=== PATIENT | male | born 1940 | race Asian ===

== ENCOUNTER 2022-05-14 06:13 | Day surgery (SDC) | payer MEDICARE, BC ==
[2022-05-13 16:55] LABS: CLARITY,URINE CLEAR (Clear); COLOR,URINE STRAW (Yellow); GLUCOSE, URINE NEGATIVE (Neg); KETONES,URINE NEGATIVE (Neg); LEUKOCYTE ESTERASE ,URINE NEGATIVE (Neg); OCCULT BLOOD,URINE NEGATIVE (Neg); PROTEIN,URINE NEGATIVE (Neg); UROBILINOGEN,URINE 0.2 E.U/dL (0.2-1.0)
[2022-05-13 16:56] LABS: BASOPHILS % (AUTO) 0.8 % (0-1); EOSINOPHILS % (AUTO) 1.3 % (0-6); LYMPHOCYTES # (AUTO) 0.8 X10'3 (1.1-4.8); LYMPHOCYTES % (AUTO) 20.8 % (21-51); MEAN CORPUSCULAR HEMOGLOBIN 32.5 PG (27.0-31.0); MEAN CORPUSCULAR HGB CONC 33.2 g/dL (33.0-36.5); MEAN CORPUSCULAR VOLUME 97.9 FL (78-98); MEAN PLATELET VOLUME 9.2 FL (7.4-10.4); MONOCYTES # (AUTO) 0.4 X10'3 (0-0.9); MONOCYTES % (AUTO) 9.1 % (2-12); NEUTROPHILS # (AUTO) 2.6 X10'3 (1.8-7.7); PRE OP HEMATOCRIT 43.4 % (42.0-52.0); PRE OP HEMOGLOBIN 14.4 g/dL (14.0-17.9); PRE OP PLATELET COUNT 124 X10'3 (140-440); RED BLOOD COUNT 4.43 X10'6 (4.70-6.10); RED CELL DISTRIBUTION WIDTH 12.9 % (11.5-14.5)
[2022-05-13 17:01] LABS: NITRITES, URINE NEGATIVE (Neg); UA COLLECTION TYPE NON-SPECIFIED
[2022-05-13 17:13] LABS: ALBUMIN 3.9 G/DL (3.4-5.0); BLOOD UREA NITROGEN 21 MG/DL (7-18); BUN/CREATININE RATIO 17.4 (5.4-32.0); CALCIUM 8.7 MG/DL (8.5-10.1); CHLORIDE 105 MMOL/L (99-107); CREATININE 1.21 MG/DL (0.60-1.10); PRE OP ANION GAP 7 (8-16); PRE OP BILIRUB, TOTAL 0.9 MG/DL (0.0-1.0); PRE OP GLUCOSE 124 MG/DL (70-104); PRE OP SODIUM 141 MMOL/L (135-145); TOTAL CARBON DIOXIDE 29.2 MMOL/L (24-32); eGFR 58 ML/MIN
[2022-05-13 17:14] LABS: ALBUMIN/GLOBULIN RATIO 1.3 (1.1-1.5); ALKALINE PHOSPHATASE 67 IU/L (46-116); PRE OP ALT 22 U/L (30-65); PRE OP AST 28 U/L (10-37)
[~2022-05-14] VITALS: Ht 170.2 cm; Wt 68.0 kg
[2022-05-14] VITALS (7 sets, daily range): BP systolic 125–152; BP diastolic 79–102
[~2022-05-14 06:13] MED LIST: BRIM5DRO3 EACHEYE; LEVO100T9 PO; LOSA100T57 PO; ceFOXitin 2GM-NS 100mL ADDvant 100 ML IV ONE; famotidine 20mg tablet PO ONE; ringers solution, lacted 1,000 ML IV SCH
[2022-05-14] MEDS ORDERED: proCHLORperazine 10 MG/2 ml inj IV PRN (10:15)
[2022-05-14] MEDS ORDERED: morphine 4 MG/ML inj SYRINge IV PRN (10:15)
[2022-05-14] MEDS ORDERED: meperidine/PF 25mg/ml syringe IV PRN ×3 (10:15)
[2022-05-14] MEDS ORDERED: morphine 2 MG/ML inj. syringe IV PRN (10:15)
[2022-05-14] MEDS ORDERED: ondansetron/PF 4mg/2ml inj IV PRN (10:15)
[2022-05-14] MEDS ORDERED: ringers solution, lacted 1,000 ML IV SCH (10:15)
[2022-05-14] MEDS ORDERED: FENTANYL CITRATE/PF 50 MCG/1 ML VIAL ONE (10:36)
[2022-05-14] MEDS ORDERED: midazolam 1 mg/ML 2ml injection ONE (10:37)
[2022-05-14] MEDS ORDERED: propofol inj 20 ML IV ONE (10:39)
[2022-05-14] MEDS ORDERED: LIDOcaine 2% (20mg/ml) 5ml vial ONE (10:39)
[2022-05-14] MEDS ORDERED: dexamethasone sod phosphate 4mg/ml inj. ONE (10:40)
[2022-05-14] MEDS ORDERED: rocuronium 10mg/ml inj IV ONE (10:40)
[2022-05-14] MEDS ORDERED: ondansetron/PF 4mg/2ml inj ONE (10:41)
[2022-05-14] MEDS ORDERED: BUPIVACAINE liposomal/PF 13.3 MG/ML vial IM ONE ×2 (10:44→11:15)
[2022-05-14] MEDS ORDERED: acetaminophen 1,000mg/100ml IV 100 ML IV ONE (10:52)
[2022-05-14] MEDS ORDERED: BUPIVAcaine 0.25% w/Epi /PF 30ml vial IJ ONE (11:15)
[2022-05-14] MEDS ORDERED: bacitracin 15gm ointment TP ONE (11:55)
--- NOTE | 2022-05-14 12:20 | NUR ---
Received from OR via BED, accompanied by Anesthesiologist and report given by Anesthesiologist. PATIENT WAKING UP, NO S/S OF PAIN, V/S WNL, SCD ON, 20G TO LUE, ABDOMEN LAP SITE CLEAN W/ NO S/S OF COMPLICATIONS
--- NOTE | 2022-05-14 13:10 | NUR ---
PATIENT [id number], DENIES PAIN, V/S WNL, SCD ON, 20G TO LUE, ABDOMEN LAP SITE CLEAN W/ NO S/S OF COMPLICATIONS . I HAVE REVIEWED D/C INSTRUCTIONS WITH PATIENT and they have verbalized understanding patient d/c home with all belongings and family gave transport home.
== END 2022-05-14 13:10 | disposition home or self-care (01) ==
LOC: PAS 06:13
PROVIDERS: ATTEND Surgery
DX: K43.9 Ventral hernia without obstruction or gangrene (principal); Z79.899 Other long term (current) drug therapy; Z98.890 Other specified postprocedural states; Z91.041 Radiographic dye allergy status; Z98.41 Cataract extraction status, right eye; Z98.42 Cataract extraction status, left eye
CPT/HCPCS: 36415; 49652; 80053; 81003; 82948; 85025; 93005; C9290; J0131; J0694; J2250; J2405; J2704; J3010; J3490; J7120; S0020; Z7512; A4618; A7000; C1781; J1100